=== PATIENT | female | born 1985 | race Caucasian/White ===

== ENCOUNTER → 2019-03-01 17:58 | Outpatient (CLI) | payer MEDICAID, SELFPAY ==
[2019-03-01 18:34] LABS: Hematocrit 43.5 % (37.0-47.0); Hemoglobin 13.9 g/dL (12.2-16.2); Lymphocytes # 1.2 K/mm3 (0.7-4.5); Lymphocytes % 11.2 % (10-50); Mean Corpuscular HGB Conc 31.9 g/dL (31.8-35.4); Mean Corpuscular Hemoglobin 31.7 pg (27.0-31.2); Mean Corpuscular Volume 99.5 fl (81-99); Monocytes # 0.1 K/mm3 (0.1-1.0); Monocytes % 1.2 % (1.7-9.3); Neutrophils # 9.5 K/mm3 (1.8-7.8); Neutrophils % 87.5 % (37.0-80.0); Platelet Count 280 K/mm3 (142-424); Red Blood Count 4.37 M/mm3 (4.20-5.40); Red Cell Distribution Width 13.5 % (11.5-17.5); White Blood Count 10.8 K/mm3 (4.8-10.8)
[2019-03-01 19:07] LABS: MANUAL DIFFERENTIAL MANUAL DIFFERENTIAL (MANUAL DIFF)
[2019-03-01 19:23] LABS: Erythrocyte Sedimentation Rate 13 mm/hr (0-20)
[2019-03-01 19:24] LABS: Alanine Aminotransferase 20 U/L (12-78); Albumin Level 4.7 gm/dL (3.4-5.0); Albumin/Globulin Ratio 1.3 (1.1-1.8); Alkaline Phosphatase 63 U/L (46-116); Anion Gap 16.5 mEq/L (5-15); Aspartate Amino Transferase 12 U/L (15-37); Bilirubin,Total 0.2 mg/dL (0.2-1.0); Blood Urea Nitrogen 10 mg/dL (7-18); Calcium 9.4 mg/dL (8.5-10.1); Carbon Dioxide 27 mmol/L (21.0-32.0); Chloride 99 mmol/L (98-107); Chol/HDL Ratio 3.7 (1-3.5); Cholesterol 206 mg/dL (140-200); Creatinine,Serum 0.75 mg/dL (0.55-1.02); Estimated Glomerular Filt Rate 90 ml/min (>60); GFR (African American) 108 ML/MIN (>60); Globulin 3.6 gm/dl (1.3-3.2); Glucose 135 mg/dL (74-106); HDL Cholesterol 56 mg/dL (29-89); LDL Cholesterol 144 mg/dL (0-130); Potassium 4.5 mmoL/L (3.5-5.1); Sodium 138 mmol/L (136-145); T4 (Thyroxine) 7.9 ug/dl (4.7-13.3); Thyroid Stimulating Hormone 0.38 uIU/ml (0.358-3.740); Total Protein,Serum 8.3 gm/dL (6.4-8.2); Triglycerides 31 mg/dL (30-200); VLDL Cholesterol 6 mg/dL (0-40)
[2019-03-01 19:30] LABS: Lymphocytes % 13 % (10-50); Monocytes % 2 % (2-9); Neutrophils % 85 % (42-76); Platelet Estimate Normal; RBC Morphology Normal; Total Cells Counted 100
[2019-03-01 19:36] LABS: C-Reactive Protein < 0.2 mg/dL (0.0-0.9)
[2019-03-03 09:11] LABS: Hep A Ab, IgM Negative (Negative); Hepatitis B Core Antibody IgM Negative (Negative); Hepatitis B Surface Antigen Negative (Negative)
[2019-03-03 16:45] LABS: EBV Ab VCA, IgM <36.0 U/mL (0.0-35.9); HIV Screen 4th Generation wRfx Non Reactive (Non Reactive); Hepatitis C Antibody <0.1 s/co ratio (0.0-0.9); Vitamin D 25 Hydroxy 53.1 ng/mL (30.0-100.0)
[2019-03-03 18:02] LABS: Peripheral Smear Review Scanned Result
== END ==
PROVIDERS: Visit Provider Physician Assistant
DX: K12.1 Other forms of stomatitis (principal); K13.70 Unspecified lesions of oral mucosa
CPT/HCPCS: 80053; 80061; 80074; 82652; 84436; 84443; 85007; 85025; 85651; 86140; 86664; 86665; 86703; 87252; G0432

== ENCOUNTER → 2019-05-04 14:38 | Outpatient (CLI) | payer BC, SELFPAY ==
--- NOTE | 2019-05-04 14:40 | US_ITS ---
PROCEDURE: US THYROID CLINICAL INDICATION: enlarged thyroid Difficulty swallowing, swollen neck COMPARISON: No exams were available for comparison FINDINGS: Right lobe: 4.4 x 1.4 x 1.1 cm. Homogeneous echogenicity. Left lobe: 3.3 x 1.0 x 1.1 cm. Homogeneous echogenicity. Isthmus: Unremarkable Additional findings: No nodules evident. IMPRESSION: Mildly enlarged right lobe of the thyroid gland. No nodules apparent Dictated by: Vargas Mulligan MD 05/05/2019 07:16 Electronically signed by Vargas Mulligan MD in [place] 05/05/2019 07:16
== END ==
PROVIDERS: PCP Physician Assistant; Visit Provider Nurse Practitioner Family
DX: E04.9 Nontoxic goiter, unspecified (principal)
CPT/HCPCS: 76536

== ENCOUNTER → 2019-08-20 13:21 | Outpatient (CLI) | payer BC, SELFPAY | PROVIDERS: Visit Provider Nurse Practitioner Family | DX: B83.9 Helminthiasis, unspecified (principal) | CPT/HCPCS: 87177 ==

== ENCOUNTER 2019-10-01 09:55 | Day surgery (SDC) | payer BC, SELFPAY ==
[2019-09-27 12:55] VITALS: BMI 21.4
[2019-10-01] VITALS (7 sets, daily range): BP systolic 77–114; BP diastolic 49–70; PULSE 61–75; RESP 18; TEMP 36.6–36.7; O2SAT 96–99
[2019-10-01 10:45] LABS: Urine Pregnancy, HCG Qual. Negative (Negative)
--- NOTE | 2019-10-01 12:23 | P.PCN_ITS ---
[facility] Procedure Note Procedure Note:: Colonoscopy Procedure Report: Colonoscopy with cold biopsies Endoscopist: Elliott Mccann II, MD Referring physician: Zenia Mckeon PA-C Date of Procedure: October 01, 2019 Equipment: Olympus 180 variable stiffness pediatric colonoscope Sedation: MAC sedation Indication: Mrs. Rodriguez is a 34-year-old female with a marked change in bowel habits. Over the last year she has had more difficulty with constipation/incomplete defecation with bloating and abdominal discomfort. This is gradually worsened and now she has longer is skinny and stringy bowel movements which are loose with some diarrhea. She has incomplete bowel evacuation. She did use Linzess 145 mcg every morning which led to pain and diarrhea. She reduced this to Linzess 72 mcg but continued to have some pain and irregular bowels. She has bloating and lower abdominal pain. She initially had some dark stools but has not seen any bright red blood or hematochezia. She has lost 10 pounds. She has longer periods of time on the commode with excessive wiping. She does have some fecal incontinence at nighttime. She has noted pain on the right lower abdomen greater than the left. She has never had a colonoscopy. Her CAT scan in January 2019 showed retained feces throughout the colon. There was very minor nephrolithiasis (nonobstructing kidney stones) but no other remarkable findings were identified. She does have moderate fatigue and malaise. Procedure: Prior to the procedure, a history and physical exam was performed, and patient's medications and allergies were reviewed. The risks, benefits and alternatives of the sedation and procedure were discussed with the patient. All questions were answered and informed consent was obtained. The patient was brought to the procedure room. Patient identification and proposed procedure were verified by the physician and the nurse. The patient was placed in a left lateral decubitus position and the scope was passed under direct vision. Throughout the procedure, the patient's blood pressure, pulse, and oxygen saturations were monitored continuously. The colonoscopy was accomplished without difficulty. The patient tolerated the procedure well. Findings: On digital rectal examination there was normal rectal tone. There were no external hemorrhoids. There was a small rectocele and some angulation at the puborectalis junction. The colonoscope was introduced through the anal canal to the rectum and advanced to the cecum. The ileocecal valve and appendiceal orif ice were identified. The scope was advanced a short distance into the ileum which appeared grossly normal. The scope was then withdrawn into the colon. The cecum, ascending, transverse, descending, sigmoid and rectum were grossly normal. Cold biopsies were taken from the right colon to rule out microscopic colitis. There were no mucosal abnormalities identified. Upon retroflexion within the rectum there were grade 1 internal hemorrhoids.The preparation was excellent throughout with Lav[place] Preparation Score of 9. The cecal time was 12 minutes. Impression: 1. Normal colonoscopy with intubation of the terminal ileum 2. Small rectocele 3. Grade 1 internal hemorrhoids Plan: I do feel that the patient most likely has some outlet constipation/pelvic floor syndrome. I will follow-up the biopsies. We will discuss additional treatment options.
== END 2019-10-01 13:20 | disposition home or self-care (01) ==
PROVIDERS: PCP Physician Assistant; Visit Provider Internal Medicine Gastroenterology
PROC: 0DJD8ZZ Inspection of Lower Intestinal Tract, Via Natural or Artificial Opening Endoscopic (ICD-10-PCS; CPT 45378; principal; 2019-10-01 11:30)
DX: R15.0 Incomplete defecation (principal); R63.4 Abnormal weight loss; K64.0 First degree hemorrhoids; N81.89 Other female genital prolapse; N81.6 Rectocele
CPT/HCPCS: 45380; 81025

== ENCOUNTER 2020-09-05 07:21 | Emergency (ER) | payer MEDICAID, SELFPAY ==
[2020-09-05 07:25] VITALS: BP 137/86
[2020-09-05 07:27] VITALS: BP 137/86; PULSE 101; RESP 16; TEMP 37.4; O2SAT 98; BMI 23.2
--- NOTE | 2020-09-05 07:31 | CT_ITS ---
PROCEDURE: CT FACIAL BONES WO CON CLINICAL HISTORY: PAIN Pain and swelling of the right eye COMPARISON: No exams were available for comparison TECHNIQUE: Axial images obtained with sagittal and coronal reformats. All CT scans at the facility use one or more dose reduction, viz: automated exposure control, ma/kV adjustment per patient size (including targeted exams where dose is matched to indication, i.e. head), or iterative reconstruction technique. FINDINGS: Bones: Unremarkable. No fracture, lytic, or blastic changes evident. Extracranial soft tissues: Unremarkable. Sinuses: Unremarkable. No air-fluid levels or significant mucosal thickening. Orbits: Unremarkable. Other: There are few scattered small cervical lymph nodes on both sides. IMPRESSION: No acute finding Dictated by: Vargas Mulligan MD 09/05/2020 09:39 Vargas Mulligan MD in [place] 09/05/2020 09:39
--- NOTE | 2020-09-05 07:48 | PC.NURSE ---
pt going to rad.
[2020-09-05 07:54] LABS: Urine Pregnancy, HCG Qual. Negative (Negative)
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
[2020-09-05 08:30] VITALS: BP 115/73; PULSE 96; RESP 18; O2SAT 98
--- NOTE | 2020-09-05 09:27 | PC.NURSE ---
PT NOT IN ROOM. CHECKED WAITING ROOM AND OUTSIDE AREA, PT ELOPED.
[2020-09-05 09:30] VITALS: BP 0/0; PULSE 0; RESP 0; TEMP -17.7; TEMP 0; O2SAT 0
== END 2020-09-05 09:33 | disposition home or self-care (01) ==
PROVIDERS: Emergency Provider Emergency Medicine; PCP Physician Assistant
DX: S05.11XA Contusion of eyeball and orbital tissues, right eye, initial encounter (principal); Y04.0XXA Assault by unarmed brawl or fight, initial encounter; Y92.019 Unspecified place in single-family (private) house as the place of occurrence of the external cause; F41.8 Other specified anxiety disorders; F17.210 Nicotine dependence, cigarettes, uncomplicated
CPT/HCPCS: 70486; 81025; 99282

== ENCOUNTER 2021-01-04 14:13 | Emergency (ER) | payer MEDICAID, SELFPAY ==
[2021-01-04 14:15] VITALS: BP 90/49; PULSE 106; RESP 20; TEMP 36.5; O2SAT 97; BMI 25.9
[2021-01-04 14:44] VITALS: BP 90/49; PULSE 106; RESP 20; TEMP 36.5; O2SAT 97
--- NOTE | 2021-01-04 14:54 | XR_ITS ---
PROCEDURE: XR FOOT LT MIN 3V CLINICAL INDICATION: pain, infected 5th toe COMPARISON: No exams were available for comparison FINDINGS: No fracture or dislocation. No lytic or blastic change. There is normal mineralization. The joint spaces are well-preserved. No significant degenerative/arthritic changes. No erosive changes evident. Other findings:Mild soft tissue swelling of the 5th toe. No bony erosive process. No radiopaque foreign body IMPRESSION: Soft tissue swelling otherwise negative Dictated by: Vargas Mulligan MD 01/04/2021 15:41 Vargas Mulligan MD in [place] 01/04/2021 15:41
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
== END 2021-01-04 16:00 | disposition home or self-care (01) ==
PROVIDERS: Emergency Provider Nurse Practitioner Family; PCP Emergency Medicine
DX: L03.032 Cellulitis of left toe (principal); S91.105A Unspecified open wound of left lesser toe(s) without damage to nail, initial encounter; F41.8 Other specified anxiety disorders; F17.210 Nicotine dependence, cigarettes, uncomplicated
CPT/HCPCS: 73630; 96372; 99202; G0463